=== PATIENT | female | born 2000 | race Two or more races ===

== ENCOUNTER 2022-07-30 17:10 | Emergency (ER) | payer OTHER ==
[~2022-07-30] VITALS: Ht 170.2 cm; Wt 56.2 kg
[2022-07-30] MEDS ORDERED: CEPHALEXIN500 M1 PO (20:38)
== END 2022-07-30 20:42 | disposition home or self-care (01) ==
LOC: ER 17:10
DX: O21.0 Mild hyperemesis gravidarum (principal); Z3A.12 12 weeks gestation of pregnancy

== ENCOUNTER 2023-03-25 23:40 | Emergency (ER) | payer OTHER ==
[~2023-03-25] VITALS: Ht 170.2 cm; Wt 59.0 kg
[~2023-03-25 23:40] MED LIST: CEPHALEXIN500 M1 PO
[2023-03-26] MEDS ORDERED: BETAMETHASONE D15 G2 TOP (02:55)
== END 2023-03-26 03:06 ==
LOC: ER 23:40
DX: D17.79 Benign lipomatous neoplasm of other sites (principal)

== ENCOUNTER 2024-01-24 22:21 | Emergency (ER) | payer OTHER ==
[~2024-01-24] VITALS: Ht 170.2 cm; Wt 72.6 kg
[~2024-01-24 22:21] MED LIST changes: +BETAMETHASONE D15 G2 TOP
[2024-01-24 23:43] LABS: HEMOGLOBIN 12.3 g/dL (12.0-15.00); MEAN CELL VOLUME 79.3 fL (80.00-100.00); MEAN CORPUSCULAR HEMOGLOBIN 27.1 pg (27.00-32.0); MEAN CORPUSCULAR HGB CONC 34.1 g/dl (32.0-36.0); PLATELET COUNT 234 K/uL (150-450); RED BLOOD COUNT 4.55 M/uL (4.00-6.00); RED CELL DISTRIBUTION WIDTH 14.9 % (11.5-14.5)
== END 2024-01-25 | disposition home or self-care (01) ==
LOC: ER 22:23
PROVIDERS: General Practice
DX: N93.8 Other specified abnormal uterine and vaginal bleeding (principal)

== ENCOUNTER 2024-01-25 15:49 | Emergency (ER) | payer OTHER ==
[~2024-01-25] VITALS: Ht 170.2 cm; Wt 72.6 kg
[2024-01-25 17:07] LABS: HEMATOCRIT 35.6 % (36.0-45.00); HEMOGLOBIN 12.1 g/dL (12.0-15.00); MEAN CELL VOLUME 79.5 fL (80.00-100.00); MEAN CORPUSCULAR HGB CONC 33.9 g/dl (32.0-36.0); PLATELET COUNT 223 K/uL (150-450); RED BLOOD COUNT 4.48 M/uL (4.00-6.00); RED CELL DISTRIBUTION WIDTH 14.4 % (11.5-14.5)
[2024-01-25] MEDS ORDERED: ACETAMINOPHEN 500 MG GEL..CAP PO ONE ×2 (17:07→17:15)
== END 2024-01-25 19:45 | disposition home or self-care (01) ==
LOC: ER 15:51
PROVIDERS: Emergency Medicine
DX: N93.8 Other specified abnormal uterine and vaginal bleeding (principal)

== ENCOUNTER 2024-04-26 07:43 | Emergency (ER) | payer OTHER ==
[~2024-04-26] VITALS: Ht 170.2 cm; Wt 72.1 kg
[2024-04-26] MEDS ORDERED: GUAIFENESIN 200 MG/10 ML BLIST.PACK PO ONE (09:30)
[2024-04-26] MEDS ORDERED: CEFTRIAXONE SODIUM 1,000 MG VIAL IM ONE (09:30)
[2024-04-26] MEDS ORDERED: METHYLPREDNISOLONE SOD SUCC 40 MG VIAL IM ONE (09:30)
[2024-04-26 11:53] LABS: HEMATOCRIT 39.1 % (36.0-45.00); HEMOGLOBIN 12.6 g/dL (12.0-15.00); MEAN CELL VOLUME 81.2 fL (80.00-100.00); MEAN CORPUSCULAR HEMOGLOBIN 26.2 pg (27.00-32.0); MEAN CORPUSCULAR HGB CONC 32.3 g/dl (32.0-36.0); PLATELET COUNT 180 K/uL (150-450); RED BLOOD COUNT 4.82 M/uL (4.00-6.00); RED CELL DISTRIBUTION WIDTH 13.9 % (11.5-14.5)
[2024-04-26] MEDS ORDERED: OSEL75CA PO (12:29)
[2024-04-26 12:43] LABS: URINE APPEARANCE Clear; URINE BILIRRUBIN Negative (NEGATIVE); URINE BLOOD Negative; URINE COLOR Yellow; URINE GLUCOSE Negative (NEGATIVE); URINE KETONE Negative (NEGATIVE); URINE LEUKOCYTE Negative; URINE NITRATE Negative; URINE PROTEIN Negative (NEGATIVE)
[2024-04-26 12:46] LABS: URINE RBC 10.5 uL (0.0-20.8); URINE WBC 11.1 uL (0.0-23.2)
[2024-04-26 13:01] LABS: URINE CAST 0.45 uL (0.0-1.40)
== END 2024-04-26 12:39 | disposition home or self-care (01) ==
LOC: ER 07:45
PROVIDERS: General Practice
DX: J10.1 Influenza due to other identified influenza virus with other respiratory manifestations (principal); N39.0 Urinary tract infection, site not specified; Z20.822 Contact with and (suspected) exposure to COVID-19

== ENCOUNTER 2024-11-09 22:10 | Emergency (ER) | payer OTHER ==
[~2024-11-09] VITALS: Ht 170.2 cm; Wt 68.0 kg
[~2024-11-09 22:10] MED LIST changes: +OSEL75CA PO
[2024-11-09 22:52] VITALS: BP 108/75; O2SAT 97
[2024-11-09] MEDS ORDERED: ACETAMINOPHEN 500 MG GEL..CAP PO ONE (22:53)
== END 2024-11-10 04:08 | disposition home or self-care (01) ==
LOC: EMR PED 22:27 → ER 22:27 → EMR PED 11-10 04:08
DX: J06.9 Acute upper respiratory infection, unspecified (principal)